=== PATIENT | male | born 1995 | race Caucasian/White ===

== ENCOUNTER 2018-07-15 16:36 | Outpatient (REF) | payer BC, SELFPAY ==
[2018-07-18 11:44] LABS: Hepatitis B Surface Ag Negative (NEGAT); Hepatitis C Ab w Rflx HCV PCR Negative (NEGAT)
[2018-07-18 11:47] LABS: HIV-1/2 Ag & Ab Screen Negative (NEGAT)
[2018-07-18 12:17] LABS: HBs Antibody, Quant 3.1 mIU/mL; Hepatitis B Surface Ab Negative
[2018-07-18 12:56] LABS: Syphilis Serology (RPR) Negative (Negative)
[2018-07-18 15:06] LABS: Chlamydia Result Negative; GC Result Negative; Specimen Description URINE
== END 2018-07-15 16:37 ==
LOC: NCHCN 16:36
PROVIDERS: PCP Nurse Practitioner Family; Visit Provider Nurse Practitioner Family
DX: R36.9 Urethral discharge, unspecified (principal); Z72.89 Other problems related to lifestyle; Z11.59 Encounter for screening for other viral diseases; Z11.4 Encounter for screening for human immunodeficiency virus [HIV]; Z11.3 Encounter for screening for infections with a predominantly sexual mode of transmission
CPT/HCPCS: 86706; 86803; 87340; 87389; 87491; 87591; 86592

== ENCOUNTER 2019-10-20 09:40 | Outpatient (REF) | payer BC, SELFPAY ==
[2019-10-20 21:29] LABS: Abs Immature Grans 0.02 k/cumm (0.0-0.09); Absolute Basophil Count 0.03 k/cumm (0.0-0.2); Absolute Eosinophil Count 0.26 k/cumm (0.0-0.7); Absolute Lymphocyte Count 1.72 k/cumm (1.2-3.4); Absolute Monocyte Count 0.58 k/cumm (0.11-0.7); Absolute Neutrophil Count 3.23 k/cumm (1.2-6.7); Basophils % 0.5; Eosinophils % 4.5; HCT 42.1 % (40.0-50.0); HGB 15.2 g/dL (13.5-17.5); Immature Grans % 0.3; Lymphocytes % 29.5; Mean Corp. HGB Concentration 36.1 g/dL (32.0-36.0); Mean Corpuscular Volume 88.6 fL (80-95); Mean Platelet Volume 9.9 fL (8.0-11.0); Monocytes % 9.9; Neutrophils % 55.3; Platelet Count 222 x1000/uL (130-400); RBC 4.75 m/cumm (4.50-6.00); RBC Distribution Width 11.9 % (11.8-14.1); White Blood Cell Count 5.84 k/cumm (4.4-10.8)
[2019-10-20 22:13] LABS: ESR 6 mm/hr (0-15)
[2019-10-23 13:17] LABS: Lyme Ab w Rflx to Lyme Confirm Negative (Negative)
[2019-10-24 16:12] LABS: Anaplasma phagocytophilum Negative (Negative); B. miyamotoi PCR Negative (Negative); Babesia divergens/MO-1 Negative (Negative); Babesia duncani Negative (Negative); Babesia microti Negative (Negative); Ehrlichia chaffeensis Negative (Negative); Ehrlichia ewingii/canis Negative (Negative); Ehrlichia muris eauclairensis Negative (Negative)
== END 2019-10-20 10:00 ==
LOC: NCHCN 09:40
PROVIDERS: PCP Nurse Practitioner Family; Visit Provider Family Medicine
DX: M25.532 Pain in left wrist (principal); M25.531 Pain in right wrist; M25.561 Pain in right knee; M25.562 Pain in left knee; M25.551 Pain in right hip; M25.552 Pain in left hip; G89.29 Other chronic pain
CPT/HCPCS: 85652; 87798; 85025; 86431; 86618

== ENCOUNTER 2020-02-09 16:36 | Outpatient (REF) | payer BC, SELFPAY ==
[2020-02-12 10:40] LABS: Syphilis Serology (RPR) Negative (Negative)
[2020-02-12 11:45] LABS: HIV-1/2 Ag & Ab Screen Negative (Negative)
[2020-02-12 14:23] LABS: GC Result Negative (Negative)
[2020-02-12 15:47] LABS: Chlamydia Result Positive (Negative)
== END 2020-02-09 16:56 ==
LOC: NCHCN 16:36
PROVIDERS: PCP Nurse Practitioner Family; Visit Provider Nurse Practitioner Family
DX: R36.9 Urethral discharge, unspecified (principal); Z72.89 Other problems related to lifestyle; Z11.4 Encounter for screening for human immunodeficiency virus [HIV]
CPT/HCPCS: 87389; 87491; 87591; 86592

== ENCOUNTER 2023-04-04 16:39 | Emergency (ER) | payer OTHER, SELFPAY ==
[2023-04-04 16:41] VITALS: BP 131/92; PULSE 90; RESP 20; TEMP 37; O2SAT 94
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
[2023-04-04] MEDS: Ibuprofen 600 MG TAB PO (17:26)
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
[2023-04-04 19:06] VITALS: BP 128/88; PULSE 82; RESP 16; O2SAT 98
== END 2023-04-04 19:45 | disposition home or self-care (01) ==
PROVIDERS: Emergency Provider Physician Assistant; PCP Nurse Practitioner Family
DX: S62.316A Displaced fracture of base of fifth metacarpal bone, right hand, initial encounter for closed fracture (principal); Y04.2XXA Assault by strike against or bumped into by another person, initial encounter; S60.410A Abrasion of right index finger, initial encounter
CPT/HCPCS: 99284; 73110; 73130

== ENCOUNTER 2023-04-06 12:08 | Day surgery (SDC) | payer OTHER, SELFPAY ==
[2023-04-06] VITALS (7 sets, daily range): BP systolic 98–107; BP diastolic 59–91; PULSE 65–82; RESP 16–18; TEMP 36.6–36.7; O2SAT 97–99; BMI 20.8
[2023-04-06] MEDS: Acetaminophen 500 MG TAB 1000 MG PO (12:46)
[2023-04-06] MEDS: Celecoxib 200 MG CAP 400 MG PO (12:46)
[2023-04-06] MEDS: Lactated Ringers 1,000 ML 80 ML IV (13:01)
--- NOTE | 2023-04-06 14:45 | DI.RAD_ITS ---
Exam(s) XR HAND RT LIMITED EXAM: XR HAND RT LIMITED CLINICAL HISTORY: DISPLACED FX THROUGH BASE 5TH METACARPAL R HAND TECHNIQUE: 2D and realtime digital imaging was performed. CONTRAST MATERIAL: Refer to procedure report. COMPARISON: CR,XR XR HAND RT COMPLETE from 04/04/2023 FINDINGS: Fluoroscopy was provided for Dr. Bullock during the performance of a fixation of 5th metacarpal fra cture. Please refer to the procedure report for complete details. Ka,r=0.87 mGy IMPRESSION: RADIATION DOSE DELIVERED:
--- NOTE | 2023-04-06 14:45 | W.ANESPRE ---
General Info Date of Service Date Performed: 04/06/23 Height: 5 ft 10 in Weight: 65.9 kg Body Mass Index (BMI): 20.8 Surgical Procedure: Operation Date: 04/06/23 15:55 Proposed Procedure Side Surgeon p Closed Reduction and Pinning 5th MC FX Right Neymar Bullock MD Meds Allergies and Home Medications Allergies Allergy/AdvReac Type Severity Reaction Status Date / Time No Known Allergies Allergy Verified 04/06/23 12:42 Home Medication Medication Instructions Recorded amoxicillin 875 mg-potassium 1 tab PO BID 7 days #14 tabs 04/04/23 clavulanate 125 mg tablet Current Visit Medications: Current Medications Generic Name Dose Route Start Last Admin Trade Name Freq PRN Reason Stop Dose Admin Acetaminophen 1,000 mg 04/06/23 06:00 04/06/23 12:46 Acetaminophen 500 Mg Tab PO 04/06/23 16:00 1,000 mg PREOP MELI Administration Celecoxib 400 mg 04/06/23 06:00 04/06/23 12:46 Celecoxib 200 Mg Cap PO 04/06/23 16:00 400 mg PREOP MELI Administration Ringer's Solution 1,000 mls @ 80 mls/hr 04/06/23 06:00 04/06/23 13:01 IV 04/06/23 23:59 80 mls/hr INFUSION MELI Administration IV Miscellaneous Supplies 1 each 04/06/23 06:00 Iv Access IV 04/06/23 23:59 DIRECTED MELI Sodium Chloride 0 ml 04/06/23 06:00 Normal Saline Flush 10 Ml Syr IV 04/06/23 23:59 PRN PRN Sodium Chloride 0 ml 04/06/23 06:00 Normal Saline 10 Ml Vial IJ 04/06/23 23:59 DIRECTED PRN Sterile Water 0 ml 04/06/23 06:00 Water,Injection,Sterile 10 Ml Vial IJ 04/06/23 23:59 DIRECTED PRN PFSH Active Problems Active Problems: Problem Status Onset Code Fracture of base of metacarpal bone of right hand S62.319A Finger laceration S61.219A Medical History Medical History (Updated 04/06/23 @ 15:03 by Mariia Longoria) No significant past medical history Surgical History Surgical History History of surgery on arm R forearm L upper arm Tobacco Smoking/Tobacco Use Status: Former Tobacco Use Alcohol Alcohol Intake: current Alcohol intake frequency: a few times a week Alcohol type: beer Substance Use Substance use: Never Substance use type: does not use Vital Signs and Lab Results Vital Signs Most Recent Vital Signs in EMR: Most Recent Vital Signs Temp Pulse Resp BP Pulse Ox 36.7 C 65 18 102/91 H 99 04/06/23 12:37 04/06/23 12:37 04/06/23 12:37 04/06/23 12:37 04/06/23 12:37 Lab Results Blood Type / Crossmatch: No Data to Display Complete Blood Count: No Data to Display Complete Metabolic Panel: No Data to Display Liver Function Panel: No Data to Display Coagulation Panel: No Data to Display Cardiac Panel: No Data to Display Arterial Blood Gas: No Data to Display Venous Blood Gas: No Data to Display Pancreas Panel: No Data to Display Thyroid Panel: No Data to Display Infectious Disease: No Data to Display Blood Cultures: No Data to Display Toxicology Panel: No Data to Display Anesthesia Assessment and Plan Anesthesia History Personal History: No History of Anesthesia Complications Family History: No Family History of Anesthesia Complications Exercise Tolerance Exercise Tolerance: Metabolic Equivalents>4 Pertinent Negatives Pertinent Negatives: No Symptoms of GERD, No Major Cardiovascular Symptoms or Complaints, No Major Pulmonary Symptoms or Complaints and No History of CVA/TIA Cardiac & Pulmonary Exam Cardiac Exam: Normal S1/S2 Heart Sounds Pulmonary Exam: Clear Bilateral Breath Sounds Implantable Cardiac Device Does patient have a Pacemaker or an ICD?: No Airway Exam Known Difficult Airway: No Mallampati Class: 2 Mouth Opening: Normal (> 3cm) Thyromental Distance: Greater than 3 cm Facial Hair: Full Gracia Neck Range of Motion: Full ROM Neck Circumference: Normal Teeth Condition: Normal Dentition ASA Classification ASA Score: ASA 2 Emergency Case?: No NPO Status NPO Status: NPO Clears >2 hours, Solids >8 hours Anesthesia Plan Resuscitation Status: Full Code Anesthesia Technique: General Anesthesia Airway Planned: Natural Airway Monitors Used: Standard Monitors
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
--- NOTE | 2023-04-06 15:06 | PDOC.DSDIS_ITS ---
Date of service: 04/06/23 Time of Service: 15:09 Discharge Plan Disposition Patient Disposition: Home Condition: Good Discharge Details Reason For Visit: Right fifth metacarpal fracture Attending Provider: Neymar Bullock Primary Care Provider: Sweetie Salcido Home Meds and New Rx's Prescriptions: New acetaminophen 500 mg tablet 500 mg PO Q6H PRN (Reason: pain) Qty: 60 2RF hydrocodone-acetaminophen 5-325 mg tablet 1 tab PO Q6H PRN (Reason: severe pain) Qty: 6 0RF Rx Instructions: Take one tablet up to every 6 hours as needed for severe postoperative pain ibuprofen 600 mg tablet 600 mg PO TID PRN (Reason: pain) Qty: 60 0RF Continued amoxicillin-pot clavulanate 875-125 mg tablet 1 tab PO BID 7 Days Qty: 14 0RF Discharge Instructions Additional Instructions: Fifth Metacarpal Fracture Discharge Instructions Activity: You should keep the hand/wrist elevated as much as possible for the first few days. You may use the other fingers as tolerated but avoid trying to do too much too soon. You may perform light activities with the splint in place. Dressing/Cast: Your splint should stay in place at all times. Do NOT get it wet. You may loosen the ANIA wrap if you feel it is too tight and then re-wrap more loosely. Medications: - You should take Tylenol and Ibuprofen for baseline pain control. - You have been prescribed a stronger pain medication, Hydrocodone, for breakthrough pain. - You may apply ice over the wrist, just double bag so it doesn't get wet. Follow-up: 10-14 days Referrals: Neymar Bullock MD [ [facility] STAFF PHYSICIAN] - Equipment/Supplies: Splint Activity:: Elevate Remove Dressings/Wound Care:: Do Not Remove Shower/Bathe:: Cover Diet:: As Tolerated Discharge Orders Discharge Orders: Discharge Order (Routine); Ordered 04/06/23 Ordered By: Mariia Longoria DS: Diagnosis Discharge Diagnosis (1) Fracture of base of metacarpal bone of right hand: Status: Acute
[2023-04-06] MEDS: Bupivacaine 0.25% Pres-Free 30 ML VIAL (15:35)
--- NOTE | 2023-04-06 16:43 | W.ANESPOSTOP ---
Postoperative Evaluation Date, Time and Location Date Performed: 04/06/23 Time Performed: 16:44 Patient Location: Day Surgery Unit Vital Signs Most Recent Imported Vital Signs: Most Recent Vital Signs Temp Pulse Resp BP Pulse Ox 36.6 C 74 17 107/71 98 04/06/23 16:26 04/06/23 16:26 04/06/23 16:26 04/06/23 16:26 04/06/23 16:26 Pain Score Most Recent Pain Score: Most Recent Pain Score Pain Level 2 04/06/23 16:26
--- NOTE | 2023-04-06 16:44 | W.ANESPOSTOP ---
Postoperative Evaluation Date, Time and Location Date Performed: 04/06/23 Time Performed: 16:15 Patient Location: PACU Vital Signs Most Recent Imported Vital Signs: Most Recent Vital Signs Temp Pulse Resp BP Pulse Ox 36.6 C 74 17 107/71 98 04/06/23 16:26 04/06/23 16:26 04/06/23 16:26 04/06/23 16:04/06/23 16:26 Pain Score Most Recent Pain Score: Most Recent Pain Score Pain Level 2 04/06/23 16:26 Assessment Mental Status: Awake (Alert & Oriented to Patient Baseline) Airway and Respiratory Function: Patent airway with normal (patient baseline) respiratory exam Cardiovascular Function: Hemodynamically Stable Hydration Status: Adequately Hydrated Nausea & Vomiting: No Nausea or Vomiting Pain: Pt. Denies Any Pain Peripheral Nerve Block: Patient did not receive a nerve block
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
== END 2023-04-06 17:25 | disposition home or self-care (01) ==
PROVIDERS: PCP Nurse Practitioner Family; Visit Provider Student in an Organized Health Care Education/Training Program
PROC: (CPT 26608; principal; 2023-04-06 15:45)
DX: S62.316A Displaced fracture of base of fifth metacarpal bone, right hand, initial encounter for closed fracture (principal); Y04.0XXA Assault by unarmed brawl or fight, initial encounter
CPT/HCPCS: 26608; 73120; J1100; J2001; J2250; J2405; J2704

== ENCOUNTER 2023-04-16 08:10 | Outpatient (CLI) | payer OTHER, SELFPAY ==
--- NOTE | 2023-04-16 08:00 | DI.RAD_ITS ---
Exam(s) XR HAND RT COMPLETE EXAM: XR HAND RT COMPLETE CLINICAL HISTORY: Fifth metacarpal fracture. TECHNIQUE: 2D digital imaging was performed. Three views. COMPARISON: CR,XR XR WRIST RT COMPLETE from 04/04/2023 CR,XR XR HAND RT COMPLETE from 04/04/2023 CR XR HAND RT LIMITED from 04/06/2023 FINDINGS: An ulnar-sided splint is in place. Two pins are noted through the mid portions of the 4th and 5th me tacarpals. There has been no change in the alignment of the fracture at the base of the 5th metacarp al. DATA REPOSITORY: RADIATION DOSE DELIVERED:
== END 2023-04-16 08:11 | disposition home or self-care (01) ==
LOC: DIORS 08:11
PROVIDERS: PCP Nurse Practitioner Family; Referring Provider Nurse Practitioner Family; Visit Provider Physician Assistant
DX: S62.319D Displaced fracture of base of unspecified metacarpal bone, subsequent encounter for fracture with routine healing (principal); X58.XXXD Exposure to other specified factors, subsequent encounter
CPT/HCPCS: 73130

== ENCOUNTER 2023-04-23 10:04 | Outpatient (CLI) | payer OTHER, SELFPAY ==
--- NOTE | 2023-04-23 09:00 | DI.RAD_ITS ---
Exam(s) XR HAND LT COMPLETE EXAM: XR HAND LT COMPLETE CLINICAL HISTORY: LEFT HAND PAIN. TECHNIQUE: 2D digital imaging was performed of the left hand. Three views were obtained. AP, later al and oblique views were obtained. COMPARISON: There are no priors for comparison. FINDINGS: BONES: No acute fracture is present. No bony destructive lesion is seen. JOINTS: No dislocation present. SOFT TISSUE: Normal. IMPRESSION: Unremarkable radiographs of the left hand. DATA REPOSITORY: RADIATION DOSE DELIVERED:
--- NOTE | 2023-04-23 09:00 | DI.RAD_ITS ---
Exam(s) XR HAND RT COMPLETE EXAM: XR HAND RT COMPLETE CLINICAL HISTORY: S/P PINNING 5TH METACARPAL FX. TECHNIQUE: 2D digital imaging was performed. Three images were obtained. AP, lateral and oblique vi ews were obtained. COMPARISON: CR XR HAND RT COMPLETE from 04/16/2023 FINDINGS: BONES: There are stable post operative changes present. No new fracture or dislocation. There is a s table 5th metacarpal fracture. JOINTS: The joint spaces are well maintained. The articular surfaces are well maintained. SOFT TISSUE: Normal. IMPRESSION: Stable 5th metacarpal fracture. DATA REPOSITORY: RADIATION DOSE DELIVERED:
== END 2023-04-23 10:05 | disposition home or self-care (01) ==
LOC: DIORS 10:04
PROVIDERS: PCP Nurse Practitioner Family; Referring Provider Nurse Practitioner Family; Visit Provider Physician Assistant
DX: S69.92XD Unspecified injury of left wrist, hand and finger(s), subsequent encounter (principal); S62.316D Displaced fracture of base of fifth metacarpal bone, right hand, subsequent encounter for fracture with routine healing; Z98.890 Other specified postprocedural states; X58.XXXD Exposure to other specified factors, subsequent encounter
CPT/HCPCS: 73130

== ENCOUNTER 2023-05-07 10:51 | Outpatient (CLI) | payer OTHER, SELFPAY ==
--- NOTE | 2023-05-07 10:30 | DI.RAD_ITS ---
Exam(s) XR HAND RT COMPLETE EXAM: XR HAND RT COMPLETE CLINICAL HISTORY: f/u fracture. TECHNIQUE: 2D digital imaging was performed of the right hand. Three images were obtained. AP, late ral and oblique views were obtained. COMPARISON: CR XR HAND RT COMPLETE from 05/07/2023 FINDINGS: BONES: There has been no change in alignment of the fracture involving the 5th metacarpal. There has been interval removal of the percutaneous pins. No new fractures identified. No bony destructive l esion is seen. JOINTS: No dislocation present. SOFT TISSUE: Normal. IMPRESSION: 1. Stable 5th metacarpal fracture. 2. Interval removal of the percutaneous pins. DATA REPOSITORY: RADIATION DOSE DELIVERED:
--- NOTE | 2023-05-07 10:31 | DI.RAD_ITS ---
Exam(s) XR HAND RT COMPLETE EXAM: XR HAND RT COMPLETE CLINICAL HISTORY: 5th metacarpal fx s/p pinning. TECHNIQUE: 2D digital imaging was performed. Three images were obtained. AP, lateral and oblique vi ews were obtained. COMPARISON: CR XR HAND RT COMPLETE from 04/23/2023 FINDINGS: BONES: There are stable post operative changes present. No new fracture or dislocation. JOINTS: The joint spaces are well maintained. The articular surfaces are well maintained. SOFT TISSUE: Normal. IMPRESSION: Stable postoperative changes. DATA REPOSITORY: RADIATION DOSE DELIVERED:
== END 2023-05-07 10:52 | disposition home or self-care (01) ==
LOC: DIORS 10:51
PROVIDERS: PCP Nurse Practitioner Family; Referring Provider Nurse Practitioner Family; Visit Provider Physician Assistant
DX: S62.316D Displaced fracture of base of fifth metacarpal bone, right hand, subsequent encounter for fracture with routine healing (principal); X58.XXXD Exposure to other specified factors, subsequent encounter; Z98.890 Other specified postprocedural states
CPT/HCPCS: 73130

== ENCOUNTER 2023-05-28 11:51 | Outpatient (CLI) | payer OTHER, SELFPAY ==
--- NOTE | 2023-05-28 08:15 | DI.RAD_ITS ---
Exam(s) XR HAND RT COMPLETE EXAM: XR HAND RT COMPLETE CLINICAL HISTORY: S/P PIN. TECHNIQUE: 2D digital imaging was performed. COMPARISON: CR XR HAND RT COMPLETE from 05/07/2023 FINDINGS: 3 views The previously described fracture site in the proximal 5th metacarpal remain stable. Fracture line s till faintly visible but no displacement. Parallel fixation channels in the 4th and 5th metacarpals again noted with no fractures at these levels no evidence of osteomyelitis. No new fractures evident . IMPRESSION: Stable appearance of the 5th metacarpal base fracture site. Some further healing evident. Fracture line is still faintly evident but not displaced. DATA REPOSITORY: RADIATION DOSE DELIVERED:
== END 2023-05-28 11:52 | disposition home or self-care (01) ==
LOC: DIORS 11:51
PROVIDERS: PCP Nurse Practitioner Family; Visit Provider Student in an Organized Health Care Education/Training Program
DX: S62.316D Displaced fracture of base of fifth metacarpal bone, right hand, subsequent encounter for fracture with routine healing (principal); X58.XXXD Exposure to other specified factors, subsequent encounter; Z98.890 Other specified postprocedural states
CPT/HCPCS: 73130

== ENCOUNTER 2023-09-20 09:01 | Emergency (ER) | payer OTHER, SELFPAY ==
[2023-09-20 09:10] VITALS: BP 109/71; PULSE 88; RESP 16; TEMP 37.1; O2SAT 98
--- NOTE | 2023-09-20 09:28 | ED.GENADUL_ITS ---
Discharge Plan Disposition Patient Disposition: Home Condition: Stable Discharge Details Clinical Impression: Gastroenteritis Primary Care Provider: Katie Vargas ED Provider: Lamont Rodríguez Home Meds and New Rx's Prescriptions: New azithromycin 500 mg tablet 500 mg PO DAILY 3 Days Qty: 3 0RF ondansetron 4 mg tablet,disintegrating 4 mg PO Q8H PRN (Reason: Nausea/Vomiting) Qty: 15 0RF Discharge Instructions Instructions: Azithromycin (By mouth), Ondansetron (By mouth), Gastroenteritis (ED) Additional Instructions: You were seen in the emergency department for your likely gastroenteritis or GI tract infection, due to your symptoms onset and duration of 9 days it is reasonable to treat with antibiotics for traveler's diarrhea, you may continue Imodium A-D, please take Tylenol and ibuprofen for abdominal cramping as needed, have also sent you a prescription for ondansetron a dissolvable tablet you can take 3 times per day on your tongue a little bit before mealtimes to aid with nausea and vomiting. Please return to the emergency department for any severe increase in abdominal pain or fever or intractable nausea or vomiting. Medical Decision Making This dictation utilizes [id number] dictation software and may contain unedited grammatical errors. 27 y/o M presents to ED today with a chief complaint of nausea/vomiting/diarrhea and abdominal cramping for the past 9 days. He states that he has been throwing up each day and having liquid diarrhea, denies black or bloody diarrhea, denies coffee-ground emesis, denies severe abdominal pain, did have some significant cramping that relieved with bowel movement, denies dysuria or urinary symptoms, denies chest pain or fever or shortness of breath. Patient attempted palliation with Imodium AD without change. Patient has no relevant medical history, otherwise healthy. Family and social history: noncontributory. Patient has endorsed a mild cough, and took an at-home Covid test which was negative. Pertinent exam findings / vital signs include mild diffuse abdominal tenderness, no CVA tenderness to percussion bilaterally, neuro intact, benign cardiopulmonary exam, nontoxic vitals. Differential / pathologies of concern include gastroenteritis, gastritis, diverticulitis, not appendicitis, biliary colic, not sepsis. Diagnostic studies of: -CBC, CMP, Lipase, UA, Covid/Flu. -CBC benign -CMP shows no major dehydration or electrolyte disturbances -discharged with UA pending, sample collected- no major findings -Covid/Flu/RSV negative -labs WNL, no major electrolyte abnormalities, imaging by CT unnecessary and exam is reassuring without peritoneal signs. Interventions of: -APAP/NSAIDs, ondansetron, 1L LR bolus IVF. ED Course: No acute complications throughout ED visit, patient was overall stable while receiving 1 L IV fluids, required no acute interventions and has an uncomplicated illness without systemic symptoms. Findings not consistent with sepsis, intractable nausea/vomiting, electrolyte disturbances, sepsis, biliary colic, pancreatitis, renal colic- patient likely has gastroenteritis, and with his onset it is reasonable to treat empirically with ABX. Disposition of Gastroenteritis. Assessment/Plan: Reasonable to treat with antibiotics for traveler's diarrhea with azithromycin as well as ondansetron. Counseled patient on strict return criteria for any intractable nausea vomiting or failure to improve. Patient verbalized understanding of the plan and return to ED criteria and engaged in shared decision making. Medical Records Medical records reviewed: Yes I reviewed the patient's medical records. Lab Data Lab results reviewed: Yes I reviewed the patient's lab results. Labs: Laboratory Tests Range/Units 09/20/23 09:29 WBC (4.4-10.8) 10^3/uL 9.68 RBC (4.36-5.78) 10^6/uL 5.54 Hgb (13.5-17.5) g/dL 16.7 Hct (40.0-50.0) % 47.3 MCV (80-95) fL 85 MCH (27.0-33.0) pg 30.1 MCHC (32.0-36.0) % 35.3 RDW (11.8-14.1) % 11.7 L Plt Count (130-400) 10^3/uL 274 MPV (8.0-11.0) fL 9.1 Immature Gran % 0.4 Neutrophils % 68.8 Lymphocytes % 15.1 Monocytes % 13.5 Eosinophils % 1.5 Basophils % 0.7 Nucleated RBC % (0.0-0.3) % 0.0 Absolute Neutrophils (1.2-6.7) 10^3/uL 6.65 Absolute Lymphocytes (1.2-3.4) 10^3/uL 1.46 Absolute Monocytes (0.1-0.8) 10^3/uL 1.31 H Absolute Eosinophils (0.0-0.7) 10^3/uL 0.15 Absolute Basophils (0.0-0.2) 10^3/uL 0.07 Sodium (136-145) mmol/L 137 Potassium (3.5-5.1) mmol/L 3.6 Chloride (98-107) mmol/L 101 Carbon Dioxide (21.0-32.0) mmol/L 27.7 Anion Gap (3-11) mmol/L 8.3 BUN (7-18) mg/dL 12 Creatinine (0.70-1.30) mg/dL 1.0 Est GFR (CKD-EPI 2020) (mL/min/1.73m2) 105.79 Glucose (74-106) mg/dL 91 Calcium (8.5-10.1) mg/dL 9.5 Magnesium (1.8-2.4) mg/dL 2.0 Total Bilirubin (0.2-1.0) mg/dL 0.7 AST (15-37) U/L 22 ALT (16-63) U/L 44 Alkaline Phosphatase (46-116) U/L 87 Total Protein (6.4-8.2) g/dL 7.9 Albumin (3.4-5.0) g/dL 4.2 Lipase (16-77) U/L 19 HPI General Date/Time Provider Initiated Documentation: 09/20/23 09:28 . HPI Narrative: 27 year-old male presents to ED today by POV/ambulating with a chief complaint of nausea/vomiting/diarrhea, abdominal cramping with onset 9 days ago. Quality described as liquid diarrhea, abdominal cramping relieved with BMs, nausea/vomiting possibly with tiny red flecks of blood scantly days ago in emesis, no radiation to chest pain, shortness of breath, syncope, flank pain, dysuria, black/bloody stools, severe abdominal pain. Severity is described as 5- 6/10. Palliating factors include Imodium AD without relief. Provoking factors include nothing specific. Events leading up to the incident/Associated Symptoms: Patient has been coughing a bit lately as well. Patient not anticoagulated. Related Data Home Medications Medication Instructions Recorded Confirmed azithromycin 500 mg tablet 500 mg PO DAILY Gastroenteritis 3 09/20/23 days #3 tabs ondansetron 4 mg disintegrating 4 mg PO Q8H PRN Nausea/Vomiting 09/20/23 tablet #15 tabs Previous Rx's Medication Instructions Recorded azithromycin 500 mg tablet 500 mg PO DAILY Gastroenteritis 3 09/20/23 days #3 tabs ondansetron 4 mg disintegrating 4 mg PO Q8H PRN Nausea/Vomiting 09/20/23 tablet #15 tabs Allergies Allergy/AdvReac Type Severity Reaction Status Date / Time No Known Allergies Allergy Verified 09/20/23 09:12 General Stated Complaint: Abd Prob ASIF: 3 Review of Systems All systems reviewed & are unremarkable except as noted in HPI and below PFSH All Active Problems (Updated 05/07/23 @ 13:12 by GHAZALA Gutierrez) Gastroenteritis (Acute) Fracture of base of metacarpal bone of right hand (Acute 04/04/23) S/P Closed reduction and percutaneous pinnin04/06/23 Medical History (Updated 09/20/23 @ 11:20 by GHAZALA Kirby) No significant past medical history Surgical History (Updated 05/07/23 @ 13:12 by GHAZALA Gutierrez) History of surgery on arm R forearm L upper arm Social History Smoking/Tobacco Use Status: Former Tobacco Use Quit Date: 09/15/22 Smoking risk assessment performed?: Yes Alcohol Intake: current Alcohol Intake frequency: a few times a week Alcohol ty pe: beer Drug use: Occasionally Substance use type: marijuana Housing: house Do you feel safe at home: Yes Do you feel safe in your relationship?: Yes Exam Narrative Exam Narrative: GENERAL APPEARANCE: Well-nourished, non-toxic, awake and alert, atraumatic, no acute distress. SKIN: Warm, pink, dry, intact, without rashes/lesions/ulcerations. HEAD: Normocephalic, atraumatic, normal hair distribution for gender/age. EYES: Pupils PERRLA, EOMs intact without nystagmus, normal conjunctiva, no exudates on lids/lashes. ENT: Nares patent, no circumoral cyanosis, no facial swelling NECK: Supple, trachea midline, painless cervical ROM. LUNGS/CHEST: Lungs CTA bilaterally, non-labored respirations, normal A/P diameter, symmetrical expansion, no chest wall deformity HEART (CV/PV): Regular rate and rhythm without murmur, no peripheral edema, no JVD. ABDOMEN: Soft, non-distended, no guarding, diffuse mild abdominal tenderness, no Fanshawe sign, negative McBurney's point tenderness, no Rovsing's, no CVA tenderness to percussion bilaterally. MSK: Normal ROM, no swelling/deformity to bilateral UEs or LEs, moving all extremities without weakness, no cyanosis, spine midline without tenderness, normal curvature. NEURO: Mental Status AAOx4 - alert to person, place, time, events No facial droop, no forehead involvement. Motor: No focal weakness - strength 5/5 in bilateral UEs and LEs, proximal and distal, symmetric. Sensory: sensation intact to light touch globally. Gait normal: patient ambulated without ataxia into ED room. PSYCH: euthymic, cooperative, pleasant, appropriate speech Course Vital Signs Vital signs: Vital Signs Temperature 37.1 C 09/20/23 09:10 Pulse 88 09/20/23 09:10 Respiratory Rate 16 09/20/23 09:10 Blood Pressure 109/71 09/20/23 09:10 Pulse Oximetry 98 09/20/23 09:10 Temperature 37.1 C 09/20/23 09:10 Temperature Source Temporal Artery Scan 09/20/23 09:10 Pulse 88 09/20/23 09:10 Respiratory Rate 16 09/20/23 09:10 Respiratory Effort Normal, Non-Labored 09/20/23 09:12 Blood Pressure 109/71 09/20/23 09:10 Blood Pressure Position Sitting 09/20/23 09:10 Pulse Oximetry 98 09/20/23 09:10 Oxygen Delivery Method Room Air 09/20/23 09:10 Oxygen Flow Rate 0 09/20/23 09:10 PAWSS Have you Been Recently Intoxicated or Drunk Within the Last 30 days?: No Have you Ever Experienced Previous Episodes of Alcohol Withdrawal?: No Have you ever Experienced Withdrawal Seizures?: No Have you ever Experienced Delirium Tremens(DT)s?: No Have you ever undergone Alcohol Rehabilitation Treatment (i.e, inpt ot outpatient treatment programs)?: No Have you ever Experienced Blackouts?: No Have you ever Combined Alcohol with other Downers within the last 90 days?: No Have you ever Combined Alcohol with any other Substance of Abuse during the last 90 days?: No Positive Blood Alcohol level on Presentation? [PCS.BAL]: No Evidence of Increased Autonomic Activity (i.e. HR>120, tremor, sweating, agitation, nausea)?: No Result: 0
[2023-09-20 09:51] LABS: Abs Immature Grans 0.04 10^3/uL (0.0-0.06); Absolute Basophil Count 0.07 10^3/uL (0.0-0.2); Absolute Eosinophil Count 0.15 10^3/uL (0.0-0.7); Absolute Lymphocyte Count 1.46 10^3/uL (1.2-3.4); Absolute Monocyte Count 1.31 10^3/uL (0.1-0.8); Absolute Neutrophil Count 6.65 10^3/uL (1.2-6.7); Basophils % 0.7; Eosinophils % 1.5; HCT 47.3 % (40.0-50.0); HGB 16.7 g/dL (13.5-17.5); Immature Grans % 0.4; Lymphocytes % 15.1; MCH 30.1 pg (27.0-33.0); MCHC 35.3 % (32.0-36.0); MCV 85 fL (80-95); MPV 9.1 fL (8.0-11.0); Monocytes % 13.5; Neutrophils % 68.8; Platelet Count 274 10^3/uL (130-400); RBC 5.54 10^6/uL (4.36-5.78); RDW 11.7 % (11.8-14.1); RDW-SD 36.6 fL; WBC 9.68 10^3/uL (4.4-10.8)
[2023-09-20 10:03] VITALS: BP 116/69; PULSE 71
[2023-09-20] MEDS: FAMOTIDINE 20 MG in Normal Saline 100 ML 400 MG IVPB (10:05)
[2023-09-20] MEDS: Ondansetron 4 MG/2 ML VIAL IVP (10:05)
[2023-09-20] MEDS: Lactated Ringers 1,000 ML 1000 ML IV (10:05)
[2023-09-20] MEDS: Ketorolac 15 MG/ML VIAL IVP (10:05)
[2023-09-20 10:06] LABS: ALT 44 U/L (16-63); AST 22 U/L (15-37); Albumin 4.2 g/dL (3.4-5.0); Alkaline Phosphatase 87 U/L (46-116); Anion Gap 8.3 mmol/L (3-11); BUN 12 mg/dL (7-18); Bilirubin, Total 0.7 mg/dL (0.2-1.0); CO2 27.7 mmol/L (21.0-32.0); Calcium 9.5 mg/dL (8.5-10.1); Chloride 101 mmol/L (98-107); Estimated GFR 105.79 (mL/min/1.73m2); Glucose 91 mg/dL (74-106); Lipase 19 U/L (16-77); Potassium 3.6 mmol/L (3.5-5.1); Sodium 137 mmol/L (136-145); Total Protein 7.9 g/dL (6.4-8.2)
[2023-09-20 11:21] LABS: COVID-19 PCR Negative (Negative); Influenza A PCR Negative (Negative); Influenza B PCR Negative (Negative); RSV PCR Negative (Negative)
[2023-09-20 11:21] LABS: Bilirubin Small (Negative); Blood Negative (Negative); Clarity Clear (Clear); Glucose Negative (Negative); Ketones 15 mg/dL (Negative); Leukocyte Esterase Negative (Negative); Nitrite Negative (Negative); Specific Gravity >= 1.030 (1.005-1.025); Urobilinogen 0.2 mg/dL (Up to 0.2)
[2023-09-20 11:22] LABS: Source Nasopharynx
[2023-09-20 11:31] VITALS: BP 101/67; PULSE 80; RESP 16; O2SAT 98
[2023-09-20 11:33] LABS: Bacteria Negative HPF (Negative); C & S Indicated? No; Casts 0-2 Hyaline LPF (Negative); Crystals Negative HPF (Negative); Epithelial Cells Rare HPF (Negative); Mucus Heavy (Negative); RBC Negative HPF (0-2); WBC Negative HPF (0-5)
== END 2023-09-20 11:37 | disposition home or self-care (01) ==
PROVIDERS: Emergency Provider Physician Assistant; PCP Nurse Practitioner Family
DX: K52.9 Noninfective gastroenteritis and colitis, unspecified (principal); Z20.822 Contact with and (suspected) exposure to COVID-19; Z87.891 Personal history of nicotine dependence
CPT/HCPCS: 80053; 83690; 87637; 96361; 96374; 96375; 99283; 81003; 81015; 83735; 85025; J1885; J2405

== ENCOUNTER 2023-10-04 12:52 | Outpatient (REF) | payer OTHER, SELFPAY ==
[2023-10-05 20:14] LABS: Campylobacter PCR Negative (Negative); Salmonella PCR Negative (Negative); Shiga Toxin PCR Negative (Negative); Shigella/Enteroinvasive Ecoli Negative (Negative)
== END 2023-10-04 12:53 | disposition home or self-care (01) ==
LOC: NCHCN 12:52
PROVIDERS: PCP Nurse Practitioner Family; Visit Provider Family Medicine
DX: R19.7 Diarrhea, unspecified (principal)
CPT/HCPCS: 87329; 87493; 87505; 83630; 87177